=== PATIENT | male | born 1985 | race American Indian/Alaskan Native ===

== ENCOUNTER 2023-02-01 15:53 | Emergency (ER) | payer MEDICARE, MEDICAID ==
[2023-02-01] MEDS ORDERED: Sodium Chloride 0.9% 10 ML Syringe FLUSH PRN (16:24)
[2023-02-01 16:43] LABS: BASOPHILS ABSOLUTE AUTO 0.1 K/mm3 (0.0-0.2); BASOPHILS PERCENT AUTO 0.4 % (0.0-1.0); EOSINOPHILS ABSOLUTE AUTO 0.3 K/mm3 (0.0-0.4); EOSINOPHILS PERCENT AUTO 2.4 % (0.0-6.0); HEMATOCRIT 37.9 % (42.0-52.0); HEMOGLOBIN 12.7 gm/dl (14.0-18.0); IMMATURE GRAN ABSOLUTE AUTO 0.08 K/mm3 (0.00-0.05); IMMATURE GRAN PERCENT AUTO 0.6 % (0.0-0.4); LYMPHOCYTES ABSOLUTE AUTO 4.1 K/mm3 (1.0-4.8); LYMPHOCYTES PERCENT AUTO 28.7 % (24.0-44.0); MEAN CORPUSCULAR HEMOGLOBIN 30.2 pg (28.0-32.0); MEAN CORPUSCULAR HGB CONC 33.5 g/dl (32.0-36.0); MEAN CORPUSCULAR VOLUME 90.2 fl (83.0-99.0); MEAN PLATELET VOLUME 8.9 fl (9.4-12.4); MONOCYTES PERCENT AUTO 7.1 % (0.0-8.0); NEUTROPHILS ABSOLUTE AUTO 8.6 K/mm3 (1.8-7.7); NEUTROPHILS PERCENT AUTO 60.8 % (41.0-71.0); PLATELET COUNT,PLT 283 K/mm3 (150-400); WHITE BLOOD CELL COUNT,WBC 14.19 K/mm3 (3.9-11.3)
[2023-02-01] MEDS ORDERED: Sodium Chloride 0.9% 10 ML Syringe FLUSH ONE (16:52)
[2023-02-01] MEDS ORDERED: Iopamidol 612 MG/ML 100 ML Bottle IVPUSH ONE (16:52)
[2023-02-01 17:01] LABS: A/G RATIO 0.8 (1-2); ALBUMIN 3.7 g/dl (3.4-5.0); BILIRUBIN TOTAL 0.5 mg/dL (0.2-1.0); C-REACTIVE PROTEIN 3.1 mg/dL (<1.0); CALCIUM 9.3 mg/dL (8.5-10.1); CREATININE 1.2 mg/dL (0.7-1.3); EST CRCL DRUG DOSING (CG) 102.47 mL/min; PROTEIN TOTAL,TP 8.2 g/dl (6.4-8.2)
[2023-02-01] MEDS ORDERED: VANCOmycin 2 GM/400 ML 2 GM in Premix Bag 1 BAG IV ONE (17:50)
== END 2023-02-01 20:35 | disposition home or self-care (01) ==
LOC: JD.ED 15:53
DX: L02.611 Cutaneous abscess of right foot (principal); L03.115 Cellulitis of right lower limb; F17.210 Nicotine dependence, cigarettes, uncomplicated
CPT/HCPCS: 36415; 73701; 80053; 85025; 86140; 96365; 96366; 99284; J3370; J3490; Q9967

== ENCOUNTER 2023-02-02 12:29 | Day surgery (SDC) | payer MEDICARE, MEDICAID ==
[~2023-02-02 12:29] MED LIST changes: +Acetaminophen/HYDROcodone 325-5 MG Tab PO ONE; -Dexmedetomidine 200 MCG/2 ML SDV ONE; -EPINEPHrine 1 MG/ML SDV ONE; +HYDROmorphone 0.5 MG/0.5 ML Syringe IVPUSH PRN; -Ketamine 500 mg/10 ML MDV ONE; -Ketorolac 30 MG/ML SDV ONE; -Lactated Ringers 1,000 ML ONE; -Lidocaine 1% 30 ML SDV ONE; -Lidocaine 1% 4 ML ONE; -Metoclopramide 10 MG/2 ML SDV ONE; -Midazolam 1 MG/ML 2 ML SDV ONE; -Ondansetron 4 MG/2 ML SDV ONE; -Propofol 200 MG/20 ML SDV ONE; -ceFAZolin 2 GM Vial ONE; +ceFAZolin 2 GM in Sodium Chloride 0.9% 50 ML IV ONE; +fentaNYL 100 MCG/2 ML SDV IVPUSH PRN; -fentaNYL 250 MCG/5 ML SDV ONE
== END 2023-02-02 13:00 | disposition home or self-care (01) ==
LOC: JD.SDS 12:29
PROVIDERS: ATTEND Surgery
DX: L02.611 Cutaneous abscess of right foot (principal); B96.20 Unspecified Escherichia coli [E. coli] as the cause of diseases classified elsewhere; F17.200 Nicotine dependence, unspecified, uncomplicated; Z79.899 Other long term (current) drug therapy
CPT/HCPCS: 10061; 87070; 87075; 87205; A9270; 87077; 87186

== ENCOUNTER → 2023-02-02 | Day surgery (SDC) | payer MEDICARE, MEDICAID ==
[~2023-02-02] MED LIST: Dexmedetomidine 200 MCG/2 ML SDV ONE; EPINEPHrine 1 MG/ML SDV ONE; Ketamine 500 mg/10 ML MDV ONE; Ketorolac 30 MG/ML SDV ONE; Lactated Ringers 1,000 ML ONE; Lidocaine 1% 30 ML SDV ONE; Lidocaine 1% 4 ML ONE; Metoclopramide 10 MG/2 ML SDV ONE; Midazolam 1 MG/ML 2 ML SDV ONE; Ondansetron 4 MG/2 ML SDV ONE; Propofol 200 MG/20 ML SDV ONE; ceFAZolin 2 GM Vial ONE; fentaNYL 250 MCG/5 ML SDV ONE
== END ==
LOC: JD.ED 08:49 → JD.SDS 09:32
PROVIDERS: ATTEND Surgery
DX: L02.611 Cutaneous abscess of right foot (principal); L97.419 Non-pressure chronic ulcer of right heel and midfoot with unspecified severity; I96 Gangrene, not elsewhere classified
CPT/HCPCS: J0171; J0690; J1885; J2250; J2405; J2704; J2765; J3010; J3490; J7120; 00400; 99140

== ENCOUNTER 2024-01-22 03:52 | Emergency (ER) | payer MEDICAID, MEDICARE, OTHER ==
[2024-01-22] MEDS ORDERED: Naloxone 0.4 MG/ML SDV IVPUSH PRN (04:14)
[2024-01-22] MEDS: HYDROmorphone 1 MG/ML Syringe IM ONE (04:52)
[2024-01-22] MEDS: predniSONE 10 MG Tab PO ONE (05:57)
== END 2024-01-22 06:04 | disposition home or self-care (01) ==
LOC: JD.ED 03:52
DX: M54.50 Low back pain, unspecified (principal); Z88.8 Allergy status to other drugs, medicaments and biological substances
CPT/HCPCS: 72131; 96372; 99283; J1171; J7512

== ENCOUNTER 2024-01-27 16:23 | Emergency (ER) | payer OTHER ==
[2024-01-27] MEDS ORDERED: Naloxone 0.4 MG/ML SDV IVPUSH PRN ×2 (17:25→17:49)
[2024-01-27] MEDS ORDERED: HYDROmorphone 1 MG/ML Syringe IM ONE (17:25)
[2024-01-27] MEDS: HYDROmorphone 0.5 MG/0.5 ML Syringe IVPUSH ONE (17:52)
[2024-01-27] MEDS: Naproxen 500 MG Tab PO ONE (18:55)
[2024-01-27] MEDS: Cyclobenzaprine 10 MG Tab PO ONE (18:56)
== END 2024-01-27 19:12 | disposition home or self-care (01) ==
LOC: JD.ED 16:23
DX: M54.50 Low back pain, unspecified (principal); F17.210 Nicotine dependence, cigarettes, uncomplicated; Z88.6 Allergy status to analgesic agent; Z79.1 Long term (current) use of non-steroidal anti-inflammatories (NSAID); Z79.891 Long term (current) use of opiate analgesic; Z79.899 Other long term (current) drug therapy
CPT/HCPCS: 72128; 96374; 99283; A9270; J1171